=== PATIENT | female | born 1975 | race Two or more races ===

== ENCOUNTER 2017-09-12 20:01 | Inpatient (IN) | payer BC ==
[2017-09-13] MEDS ORDERED: Sodium Chloride 0.9% 1,000 ML IV ONE ×2 (00:02→03:27)
--- NOTE | 2017-09-13 00:02 | C.PDOC ---
History Of Present Illness Patient is a 41 y/o female who presents to the ED with a complaint of abdominal pain for the last few days. Patient denies any fever or chills. Admits to seeing PMD and taking Naproxin without relief. Patient rates abdominal pain 4/ 10. No other physical complaints at this time. Time Seen by Provider: 09/13/17 00:01 Chief Complaint (Nursing): Abdominal Pain History Per: Patient History/Exam Limitations: no limitations Onset/Duration Of Symptoms: Days (few days) Current Symptoms Are (Timing): Still Present Severity: Moderate Pain Scale Rating Of: 4 Location Of Pain/Discomfort: Epigastric Radiation Of Pain To:: None Quality Of Discomfort: Dull, Cramping, Burning Associated Symptoms: Nausea. denies: Fever, Chills Exacerbating Factors: None Alleviating Factors: None Last Bowel Movement: Today Recent travel outside of the [place]: No Additional History Per: Patient Abnormal Vaginal Bleeding: No Past Medical History Reviewed: Historical Data, Nursing Documentation, Vital Signs Vital Signs: Last Vital Signs Temp 98.4 F 09/12/17 21:05 Pulse 72 09/12/17 21:05 Resp 18 09/12/17 21:05 BP 123/77 09/12/17 21:05 Pulse Ox 99 09/13/17 01:25 - Medical History PMH: Asthma (USES INHALER) Other Surgeries: 06/2001 - [facility] Procedures CERVICAL LES DESTRUC NEC (09/21/01) LOW CERVICAL (06/30/01) Family History: States: No Known Family Hx - Social History Hx Tobacco Use: No Hx Alcohol Use: No Hx Substance Use: No - Immunization History Hx Tetanus Toxoid Vaccination: No Hx Influenza Vaccination: Yes (UTD) Hx Pneumococcal Vaccination: No Review Of Systems Constitutional: Negative for: Fever, Chills Cardiovascular: Negative for: Chest Pain Respiratory: Negative for: Shortness of Breath Gastrointestinal: Positive for: Abdominal Pain (epigastric) Genitourinary: Negative for: Dysuria Musculoskeletal: Negative for: Back Pain Skin: Negative for: Rash Neurological: Negative for: Weakness Psych: Negative for: Anxiety Physical Exam - Physical Exam Appears: Non-toxic, No Acute Distress Skin: Warm, Dry Head: Normacephalic Eye(s): bilateral: Normal Inspection Oral Mucosa: Moist Neck: Supple Chest: Symmetrical Cardiovascular: Rhythm Regular, No Murmur Respiratory: Normal Breath Sounds, No Rales, No Rhonchi, No Wheezing Gastrointestinal/Abdominal: Soft, No Tenderness, No Guarding, No Rebound Back: No CVA Tenderness Extremity: Normal ROM Extremity: Bilateral: Atraumatic Pulses: Left Dorsalis Pedis: Normal, Right Dorsalis Pedis: Normal Neurological/Psych: Oriented x3, Normal Speech, Normal Cognition Gait: Steady ED Course And Treatment - Laboratory Results Result Diagrams: 09/13/17 00:26 09/13/17 00:26 O2 Sat by Pulse Oximetry: 99 Progress Note: CT A/P ordered. Zofran, pepcid, and IV fluids administered. Disposition Discussed With Dr.: Antony Chávez Comment: accepted the pt on his service and took over the care at 3:27 AM Doctor Will See Patient In The: Hospital Counseled Patient/Family Regarding: Studies Performed, Diagnosis - Disposition Disposition: HOSPITALIZED Disposition Time: 00:02 Condition: FAIR Forms: [employer] [facility] (Rwandan) - POA Present On Arrival: None - Clinical Impression Clinical Impression: Abdominal pain, Duodenitis, Duodenal bulb ulcer - Scribe Statement The provider has reviewed the documentation as recorded by the Scribe Debra Downs All medical record entries made by the Scribe were at my direction and personally dictated by me. I have reviewed the chart and agree that the record accurately reflects my personal performance of the history, physical exam, medical decision making, and the department course for this patient. I have also personally directed, reviewed, and agree with the discharge instructions and disposition. Decision To Admit - Pt Status Changed To: Hospital Disposition Of: Inpatient - Admit Certification Admit to Inpatient:: After my assessment, the patient will require hospitalization for at least two midnights. This is because of the severity of symptoms shown, intensity of services needed, and/or the medical risk in this patient being treated as an outpatient. - InPatient: Physician Admission Certification:: After my assessment, the patient will require hospitalization for at least two midnights. This is because of the severity of symptoms shown, intensity of services needed, and/or the medical risk in this patient being treated as an outpatient. - . Bed Request Type: Regular Admitting Physician: Antony Chávez Patient Diagnosis: Abdominal pain, Duodenitis, Duodenal bulb ulcer
[2017-09-13 00:27] LABS: SQUAMOUS EPITHIAL 2 /hpf (0-5); URINE BACTERIA OCC (<OCC); URINE BILIRUBIN NEGATIVE (NEGATIVE); URINE BLOOD 1+ (NEGATIVE); URINE CLARITY Clear (Clear); URINE COLOR Colorless (YELLOW); URINE GLUCOSE (UA) NORMAL (Normal); URINE LEUKOCYTE ESTERASE NEG Leu/uL (Negative); URINE NITRATE NEGATIVE (NEGATIVE); URINE PROTEIN NEGATIVE (NEGATIVE); URINE UROBILINOGEN NORMAL mg/dL (0.2-1.0)
[2017-09-13 00:29] LABS: BASO # 0.1 K/uL (0.0-0.2); BASO % 0.9 % (0.0-2.0); EOS # 0.1 K/uL (0.0-0.7); HEMOGLOBIN 12.1 g/dL (11.0-16.0); LYMPH # 2.3 K/uL (1.0-4.3); LYMPH % 30.1 % (20.0-40.0); MEAN CELL VOLUME 83.6 fL (81.0-99.0); MEAN CORPUSCULAR HEMOGLOBIN 28.7 pg (27.0-31.0); MEAN CORPUSCULAR HGB CONC 34.3 g/dL (33.0-37.0); MONO # 0.5 K/uL (0.0-0.8); NEUT # 4.5 K/uL (1.8-7.0); RBC 4.23 Mil/uL (3.80-5.20); RED CELL DISTRIBUTION WIDTH 13.9 % (11.5-14.5); WHITE BLOOD COUNT 7.6 K/uL (4.8-10.8)
[2017-09-13 00:35] LABS: HCG,QUALITATIVE URINE NEGATIVE (NEGATIVE)
[2017-09-13] MEDS ORDERED: Iodixanol 320 MG/ML 100 ML BOTTLE IV ONE (00:35)
[2017-09-13 00:41] LABS: PROTHROMBIN TIME 11.1 SECONDS (9.7-12.2)
[2017-09-13 00:45] LABS: ALB/GLOB RATIO 1.2 (1.0-2.1); ALBUMIN 3.8 g/dL (3.5-5.0); ALT/SGPT 22 U/L (9-52); AST/SGOT 22 U/L (14-36); BLOOD UREA NITROGEN 13 mg/dL (7-17); CALCIUM 8.9 mg/dl (8.6-10.4); GFR AFRICAN-AMERICAN > 60; GFR NON-AFRICAN AMERICAN > 60; LIPASE 77 U/L (23-300)
--- NOTE | 2017-09-13 03:30 | CT ---
EXAM: CT Abdomen and Pelvis With Intravenous Contrast CLINICAL HISTORY: 41 years old, female; Pain; Abdominal pain; Additional info: Mid epigastic pain TECHNIQUE: Axial computed tomography images of the abdomen and pelvis with intravenous contrast. All CT scans at this facility use one or more dose reduction techniques, viz.: automated exposure control; ma/kV adjustment per patient size (including targeted exams where dose is matched to indication; i.e. head); or iterative reconstruction technique. Coronal and sagittal reformatted images were created and reviewed. CONTRAST: 100 mL of [id number] administered intravenously. COMPARISON: No relevant prior studies available. FINDINGS: Lower thorax: No acute findings. ABDOMEN: Liver: Mild periportal edema, nonspecific. Gallbladder and bile ducts: No calcified stones. No ductal dilation. Pancreas: No ductal dilation. No mass. Spleen: No splenomegaly. Adrenals: No mass. Kidneys and ureters: No mass. No hydronephrosis. Stomach and bowel: No definite mural thickening. No obstruction. Appendix: No findings to suggest acute appendicitis. PELVIS: Bladder: Unremarkable. Reproductive: 1.9 x 1.5 x 1.6 cm peripherally enhancing hypodensity with crenulated margins within RIGHT ovary. ABDOMEN and PELVIS: Intraperitoneal space: Small free fluid within pelvis. No free air. Bones/joints: No acute fracture. Soft tissues: Unremarkable. Vasculature: Unremarkable. No aneurysm. Lymph nodes: No pathologically enlarged lymph nodes. IMPRESSION: 1. Involuting or ruptured RIGHT ovarian follicle/cyst. 2. Incidental/non-acute findings are described above.
[2017-09-13] MEDS ORDERED: Sodium Chloride 0.9% 1,000 ML ONE (04:51)
--- NOTE | 2017-09-13 15:01 | US ---
HISTORY: vaginal bleeding COMPARISON: None available. TECHNIQUE: Real-time transabdominal pelvic ultrasound was performed. In addition a transvaginal pelvic ultrasound was necessary to better depict pelvic anatomy. FINDINGS: UTERUS: Measures 10.6 x 5.1 x 6.5 cm. Anteverted. ENDOMETRIUM: Measures 6 mm in diameter. CERVIX: Nabothian cyst. RIGHT OVARY: Measures 3.7 x 1.9 x 3.2 cm. Blood flow is demonstrated. 1.5 x 1.2 x 1.1 cm cyst with septation. LEFT OVARY: Measures 2.6 x 1.7 x 2.3 cm. Blood flow is demonstrated. FREE FLUID: Small pelvic free fluid. OTHER FINDINGS: None. IMPRESSION: 1.5 cm right ovarian cyst with septation. Six week ultrasound follow-up may be considered if indicated. Small pelvic free fluid.
--- NOTE | 2017-09-13 16:21 | CP.PCM.CON ---
<Fern Alvarado - Last Filed: 09/13/17 16:17> History of Present Illness - History of Present Illness History of Present Illness: GI Fellow PGY4 Consult Note This is a 41yF with no significant pmhx presenting with complaints of periumbilical and pelvic pain radiating to right side. Pt reports she started having this pain 4 days ago. She reports a hx of ovarian cyst diagnosed 03/30at [facility] and followed up with her [facility] as outpt. Pt reports irregular menses this month and was placed on OCP by [facility]ke [facility]. Pt denies and GI complaints, regular BM daily, no nausea, vomiting or GERD No prior hx of EGD or Colonoscopy. ROS: A 12pt ROS was negative except as above PmHx: As stated above PsHx: Denies SHx: denies tobacco, etoh or drugs Fhx: denies colon cancer Past Patient History - Past Social History Smoking Status: Never Smoked - PULMONARY Hx Asthma: Yes (USES INHALER) - PSYCHIATRIC Hx Substance Use: No - SURGICAL HISTORY Hx Surgeries: No - ANESTHESIA Hx Anesthesia: No Meds Allergies/Adverse Reactions: Allergies Allergy/AdvReac Type Severity Reaction Status Date / Time No Known Allergies Allergy Verified 09/12/17 21:10 - Medications Medications: Current Medications Oxycodone/Acetaminophen (Percocet 5/325 Mg Tab) 1 tab PO Q6H PRN PRN Reason: Pain, severe (8-10) Stop: 09/16/17 13:58 Physical Exam - Constitutional Appears: Non-toxic, In Acute Distress - Head Exam Head Exam: ATRAUMATIC, NORMAL INSPECTION, NORMOCEPHALIC - Eye Exam Eye Exam: EOMI, Normal appearance Pupil Exam: NORMAL ACCOMODATION, PERRL - ENT Exam ENT Exam: Mucous Membranes Moist - Respiratory Exam Respiratory Exam: Clear to Auscultation Bilateral, NORMAL BREATHING PATTERN - Cardiovascular Exam Cardiovascular Exam: REGULAR RHYTHM, RRR - GI/Abdominal Exam GI & Abdominal Exam: Normal Bowel Sounds, Soft, Tenderness. absent: Distended - Extremities Exam Extremities exam: Positive for: full ROM, normal inspection - Neurological Exam Neurological exam: Alert, Oriented x3 - Psychiatric Exam Psychiatric exam: Normal Affect, Normal Mood - Skin Skin Exam: Intact, Normal Color, Warm Results - Vital Signs Recent Vital Signs: Last Vital Signs Temp 98.4 F 09/13/17 15:59 Pulse 89 09/13/17 15:59 Resp 20 09/13/17 15:59 BP 96/64 L 09/13/17 15:59 Pulse Ox 96 09/13/17 15:59 - Labs Result Diagrams: 09/13/17 00:26 09/13/17 00:26 Labs: Laboratory Results - last 24 hr 09/13/17 09/13/17 09/13/17 00:21 00:26 00:26 WBC 7.6 RBC 4.23 Hgb 12.1 Hct 35.4 MCV 83.6 MCH 28.7 MCHC 34.3 RDW 13.9 Plt Count 211 MPV 8.0 Neut % (Auto) 60.0 Lymph % (Auto) 30.1 [place] % (Auto) 7.0 Eos % (Auto) 2.0 Baso % (Auto) 0.9 Neut # (Auto) 4.5 Lymph # (Auto) 2.3 [place] # (Auto) 0.5 Eos # (Auto) 0.1 Baso # (Auto) 0.1 PT 11.1 INR 1.0 APTT 27 Sodium Potassium Chloride Carbon Dioxide Anion Gap BUN Creatinine Est GFR ( Amer) Est GFR (Non-Af Amer) Random Glucose Calcium Total Bilirubin AST ALT Alkaline Phosphatase Total Protein Albumin Globulin Albumin/Globulin Ratio Lipase Urine Color Colorless Urine Clarity Clear Urine pH 6.0 Ur Specific [place] 1.005 Urine Protein Negative Urine Glucose (UA) Normal Urine Ketones Negative Urine Blood 1+ H Urine Nitrate Negative Urine Bilirubin Negative Urine Urobilinogen Normal Ur Leukocyte Esterase Neg Urine WBC (Auto) < 1 Ur Squamous Epith Cells 2 Urine Bacteria Occ H Urine HCG, Qual Negative 09/13/17 00:26 WBC RBC Hgb Hct MCV MCH MCHC RDW Plt Count MPV Neut % (Auto) Lymph % (Auto) [place] % (Auto) Eos % (Auto) Baso % (Auto) Neut # (Auto) Lymph # (Auto) [place] # (Auto) Eos # (Auto) Baso # (Auto) PT INR APTT Sodium 136 Potassium 4.7 Chloride 103 Carbon Dioxide 26 Anion Gap 12 BUN 13 Creatinine 0.5 L Est GFR ( Amer) > 60 Est GFR (Non-Af Amer) > 60 Random Glucose 94 Calcium 8.9 Total Bilirubin 0.6 AST 22 ALT 22 Alkaline Phosphatase 38 Total Protein 7.0 Albumin 3.8 Globulin 3.2 Albumin/Globulin Ratio 1.2 Lipase 77 Urine Color Urine Clarity Urine pH Ur Specific [place] Urine Protein Urine Glucose (UA) Urine Ketones Urine Blood Urine Nitrate Urine Bilirubin Urine Urobilinogen Ur Leukocyte Esterase Urine WBC (Auto) Ur Squamous Epith Cells Urine Bacteria Urine HCG, Qual Assessment & Plan - Assessment and Plan (Free Text) Assessment: This is a 41yF presenting with complaints of pelvic pain radiating to right. 1. Ruptured Right ovarian cyst Plan: -Continue supportive care with pain control and antiemetics -CT imaging reviewed no GI pathology, ruptured ovarian cyst which correlates with exam finding and hx -Recommend FILM RECORDIST for further evaluation -No GI issue at this time, please call with any questions or concers, will sign off <Natalee Alfaro MD - Last Filed: 09/13/17 17:57> Meds - Medications Medications: Current Medications Oxycodone/Acetaminophen (Percocet 5/325 Mg Tab) 1 tab PO Q6H PRN PRN Reason: Pain, severe (8-10) Stop: 09/16/17 13:58 Results - Vital Signs Recent Vital Signs: Last Vital Signs Temp 98.4 F 09/13/17 15:59 Pulse 89 09/13/17 15:59 Resp 20 09/13/17 15:59 BP 96/64 L 09/13/17 15:59 Pulse Ox 96 09/13/17 15:59 - Labs Result Diagrams: 09/13/17 00:26 09/13/17 00:26 Labs: Laboratory Results - last 24 hr 09/13/17 09/13/17 09/13/17 00:21 00:26 00:26 WBC 7.6 RBC 4.23 Hgb 12.1 Hct 35.4 MCV 83.6 MCH 28.7 MCHC 34.3 RDW 13.9 Plt Count 211 MPV 8.0 Neut % (Auto) 60.0 Lymph % (Auto) 30.1 [place] % (Auto) 7.0 Eos % (Auto) 2.0 Baso % (Auto) 0.9 Neut # (Auto) 4.5 Lymph # (Auto) 2.3 [place] # (Auto) 0.5 Eos # (Auto) 0.1 Baso # (Auto) 0.1 PT 11.1 INR 1.0 APTT 27 Sodium Potassium Chloride Carbon Dioxide Anion Gap BUN Creatinine Est GFR ( Amer) Est GFR (Non-Af Amer) Random Glucose Calcium Total Bilirubin AST ALT Alkaline Phosphatase Total Protein Albumin Globulin Albumin/Globulin Ratio Lipase Urine Color Colorless Urine Clarity Clear Urine pH 6.0 Ur Specific [place] 1.005 Urine Protein Negative Urine Glucose (UA) Normal Urine Ketones Negative Urine Blood 1+ H Urine Nitrate Negative Urine Bilirubin Negative Urine Urobilinogen Normal Ur Leukocyte Esterase Neg Urine WBC (Auto) < 1 Ur Squamous Epith Cells 2 Urine Bacteria Occ H Urine HCG, Qual Negative 09/13/17 00:26 WBC RBC Hgb Hct MCV MCH MCHC RDW Plt Count MPV Neut % (Auto) Lymph % (Auto) [place] % (Auto) Eos % (Auto) Baso % (Auto) Neut # (Auto) Lymph # (Auto) [place] # (Auto) Eos # (Auto) Baso # (Auto) PT INR APTT Sodium 136 Potassium 4.7 Chloride 103 Carbon Dioxide 26 Anion Gap 12 BUN 13 Creatinine 0.5 L Est GFR ( Amer) > 60 Est GFR (Non-Af Amer) > 60 Random Glucose 94 Calcium 8.9 Total Bilirubin 0.6 AST 22 ALT 22 Alkaline Phosphatase 38 Total Protein 7.0 Albumin 3.8 Globulin 3.2 Albumin/Globulin Ratio 1.2 Lipase 77 Urine Color Urine Clarity Urine pH Ur Specific [place] Urine Protein Urine Glucose (UA) Urine Ketones Urine Blood Urine Nitrate Urine Bilirubin Urine Urobilinogen Ur Leukocyte Esterase Urine WBC (Auto) Ur Squamous Epith Cells Urine Bacteria Urine HCG, Qual Attending/Attestation - Attestation I have personally seen and examined this patient.: Yes I have fully participated in the care of the patient.: Yes I have reviewed all pertinent clinical information: Yes Notes (Text): 09/13/17 17:55 Patient seen in ER. This is a 41 year old F presenting with complaints of pelvic pain radiating to right. She has had similar findings for past two weeks and saw obgyn who started her on OCP. Denies nausea, vomiting, change in bowel habits or rectal bleeding. CT shows no GI pathology, ruptured ovarian cyst which correlates with exam finding and hx. Recommend FILM RECORDIST for further evaluation -No GI issue at this time, please call with any questions or concers, will sign off
--- NOTE | 2017-09-13 17:40 | CP.PCM.HP ---
Past Patient History - Past Social History Smoking Status: Never Smoked - PULMONARY Hx Asthma: Yes (USES INHALER) - PSYCHIATRIC Hx Substance Use: No - SURGICAL HISTORY Hx Surgeries: No - ANESTHESIA Hx Anesthesia: No Meds Allergies/Adverse Reactions: Allergies Allergy/AdvReac Type Severity Reaction Status Date / Time No Known Allergies Allergy Verified 09/12/17 21:10 Results - Vital Signs Recent Vital Signs: Last Vital Signs Temp 98.4 F 09/13/17 15:59 Pulse 89 09/13/17 15:59 Resp 20 09/13/17 15:59 BP 96/64 L 09/13/17 15:59 Pulse Ox 96 09/13/17 15:59 - Labs Result Diagrams: 09/13/17 00:26 09/13/17 00:26 Labs: Laboratory Results - last 24 hr 09/13/17 09/13/17 09/13/17 00:21 00:26 00:26 WBC 7.6 RBC 4.23 Hgb 12.1 Hct 35.4 MCV 83.6 MCH 28.7 MCHC 34.3 RDW 13.9 Plt Count 211 MPV 8.0 Neut % (Auto) 60.0 Lymph % (Auto) 30.1 Kay % (Auto) 7.0 Eos % (Auto) 2.0 Baso % (Auto) 0.9 Neut # (Auto) 4.5 Lymph # (Auto) 2.3 Kay # (Auto) 0.5 Eos # (Auto) 0.1 Baso # (Auto) 0.1 PT 11.1 INR 1.0 APTT 27 Sodium Potassium Chloride Carbon Dioxide Anion Gap BUN Creatinine Est GFR ( Amer) Est GFR (Non-Af Amer) Random Glucose Calcium Total Bilirubin AST ALT Alkaline Phosphatase Total Protein Albumin Globulin Albumin/Globulin Ratio Lipase Urine Color Colorless Urine Clarity Clear Urine pH 6.0 Ur Specific [place] 1.005 Urine Protein Negative Urine Glucose (UA) Normal Urine Ketones Negative Urine Blood 1+ H Urine Nitrate Negative Urine Bilirubin Negative Urine Urobilinogen Normal Ur Leukocyte Esterase Neg Urine WBC (Auto) < 1 Ur Squamous Epith Cells 2 Urine Bacteria Occ H Urine HCG, Qual Negative 09/13/17 00:26 WBC RBC Hgb Hct MCV MCH MCHC RDW Plt Count MPV Neut % (Auto) Lymph % (Auto) Kay % (Auto) Eos % (Auto) Baso % (Auto) Neut # (Auto) Lymph # (Auto) Kay # (Auto) Eos # (Auto) Baso # (Auto) PT INR APTT Sodium 136 Potassium 4.7 Chloride 103 Carbon Dioxide 26 Anion Gap 12 BUN 13 Creatinine 0.5 L Est GFR ( Amer) > 60 Est GFR (Non-Af Amer) > 60 Random Glucose 94 Calcium 8.9 Total Bilirubin 0.6 AST 22 ALT 22 Alkaline Phosphatase 38 Total Protein 7.0 Albumin 3.8 Globulin 3.2 Albumin/Globulin Ratio 1.2 Lipase 77 Urine Color Urine Clarity Urine pH Ur Specific [place] Urine Protein Urine Glucose (UA) Urine Ketones Urine Blood Urine Nitrate Urine Bilirubin Urine Urobilinogen Ur Leukocyte Esterase Urine WBC (Auto) Ur Squamous Epith Cells Urine Bacteria Urine HCG, Qual
[2017-09-14] MEDS: Oxycodone/Acetaminophen 5/325 mg Tab PO PRN ×2 (03:05→14:31)
--- NOTE | 2017-09-14 14:13 | CP.PCM.CON ---
History of Present Illness - History of Present Illness History of Present Illness: COMPLIANCE ADMINISTRATOR Consult Note - Dr. Baker Patient is a 41 year old with past medical history of asthma presents to [facility] for periumbilical/lower abdominal pain. When asked, patient states that she has been having lower abdominal pain intermittently for the past 3 months. Patient states that her last menstrual period was 08/29/17. Reports that her cycle was normal, and a few days after it concluded she started experiencing sharp periumbilical pain that is accompanied by nausea. Pain was intermittent, denies any inciting events. After the onset of abdominal pain, she started noticing occasional vaginal spotting. Patient states that she saw Dr Choi outpatient for the pelvic pain and irregular vaginal bleeding last Friday. At that time he prescribed her OCPs (Cryselle) and Naproxen. Patient states that she took both Naproxen and OCPs with no relief in symptoms. Denies any aggravating factors. Last episode of spotting was yesterday afternoon. At this current time, patient states that her pain is controlled. Pain scale is currently 3-4/10. She is tolerating diet. Denies vomiting, headaches, dizziness, cp, palpitations, sob, fevers/chills, diarrhea/ constipation, urinary symptoms. OB Hx: 1. 1997 SAB with D+C 2. 1999 SAB with D+C 3. 2000 PLTCD at term, no complications COMPLIANCE ADMINISTRATOR Hx: LMP - 08/29/17 [place] - 13/regular/5 days Reports having a history of Ovarian Cysts Denies Hx of fibroids, STIs, abnormal pap smears Allergies: NKDA Medications: Albuterol Medical History: Asthma Surgical History: C/S x 1, D+C x 2, Removal of R ovarian cyst 9 years ago? Social History: Smokes 3 cig/weekend, Denies alcohol, drug use Family History: Denies history of ovarian, endometrial, breast cancer; Mother - HTN, Father - from [place] Past Patient History - Past Medical History & Family History Past Medical History?: Yes - Past Social History Smoking Status: Never Smoked - CARDIAC Hx Cardiac Disorders: No - PULMONARY Hx Respiratory Disorders: Yes Hx Asthma: Yes (USES INHALER) - NEUROLOGICAL Hx Neurological Disorder: No - HEENT Hx HEENT Problems: No - RENAL Hx Chronic Kidney Disease: No - ENDOCRINE/METABOLIC Hx Endocrine Disorders: No - HEMATOLOGICAL/ONCOLOGICAL Hx Blood Disorders: No - INTEGUMENTARY Hx Dermatological Problems: No - MUSCULOSKELETAL/RHEUMATOLOGICAL Hx Musculoskeletal Disorders: No Hx Falls: No - GASTROINTESTINAL Hx Gastrointestinal Disorders: No - GENITOURINARY/GYNECOLOGICAL Hx Genitourinary Disorders: Yes Other/Comment: Ovarian cyst - PSYCHIATRIC Hx Substance Use: No - SURGICAL HISTORY Hx Surgeries: Yes Hx Section: Yes - ANESTHESIA Hx Anesthesia: Yes Hx Anesthesia Reactions: No Meds Allergies/Adverse Reactions: Allergies Allergy/AdvReac Type Severity Reaction Status Date / Time No Known Allergies Allergy Verified 09/12/17 21:10 - Medications Medications: Current Medications Oxycodone/Acetaminophen (Percocet 5/325 Mg Tab) 1 tab PO Q6H PRN PRN Reason: Pain, severe (8-10) Stop: 09/16/17 13:58 Last Admin: 09/14/17 03:05 Dose: 1 tab Physical Exam - Constitutional Appears: Well, No Acute Distress - Head Exam Head Exam: ATRAUMATIC, NORMAL INSPECTION - Eye Exam Eye Exam: EOMI, Normal appearance - ENT Exam ENT Exam: Mucous Membranes Moist - Respiratory Exam Respiratory Exam: NORMAL BREATHING PATTERN - Cardiovascular Exam Cardiovascular Exam: REGULAR RHYTHM - GI/Abdominal Exam GI & Abdominal Exam: Normal Bowel Sounds, Soft. absent: Distended, Firm, Guarding, Rebound, Rigid, Tenderness - Extremities Exam Extremities exam: Positive for: normal inspection - Neurological Exam Neurological exam: Alert, Normal Gait, Oriented x3 - Psychiatric Exam Psychiatric exam: Normal Affect, Normal Mood - Skin Skin Exam: Dry, Normal Color, Warm Results - Vital Signs Recent Vital Signs: Last Vital Signs Temp 98.2 F 09/13/17 22:23 Pulse 83 09/13/17 22:23 Resp 18 09/13/17 22:23 BP 96/62 L 09/13/17 22:23 Pulse Ox 100 09/13/17 22:23 - Labs Result Diagrams: 09/13/17 00:26 09/13/17 00:26 Assessment & Plan - Assessment and Plan (Free Text) Assessment: 41 year old presents with intermittent lower abdominal pain/pelvic pain. CT abd/pelvis showed 1.9 x 1.5 x 1.6cm peripherally enhancing hypodensity with crenulated margins within right ovary. Small free fluid within pelvis. TVUS showed 1.5cm right ovarian cyst with septation. Plan: -Stable, afebrile -Labs and imaging reviewed -Possible ruptured ovarian cyst however less likely as patient's lower abdominal pain is chronic in nature -We will recommend further evaluation from GI and possibly Urology -Continue pain control as needed -No surgical intervention at this time -Patient to follow up with COMPLIANCE ADMINISTRATOR outpatient -Plan discussed with Dr Samuel Cheatham DO PGY-1
[2017-09-15 01:21] VITALS: RESP 20
[2017-09-15 02:46] VITALS: O2SAT 99
[2017-09-15 07:57] VITALS: BP 91/54; PULSE 68; TEMP 97
[2017-09-15] MEDS: Oxycodone/Acetaminophen 5/325 mg Tab PO PRN (08:24)
--- NOTE | 2017-09-15 13:52 | CP.PCM.DIS ---
Provider - Provider Date of Admission: 09/13/17 03:23 Attending physician: Antony Moore MD Time Spent in preparation of Discharge (in minutes): 25 Diagnosis - Discharge Diagnosis (1) Ruptured ovarian cyst Status: Acute Hospital Course - Lab Results Lab Results: Most Recent Lab Values WBC 7.6 K/uL (4.8-10.8) 09/13/17 00:26 RBC 4.23 Mil/uL (3.80-5.20) 09/13/17 00:26 Hgb 12.1 g/dL (11.0-16.0) 09/13/17 00:26 Hct 35.4 % (34.0-47.0) 09/13/17 00:26 MCV 83.6 fL (81.0-99.0) 09/13/17 00:26 MCH 28.7 pg (27.0-31.0) 09/13/17 00:26 MCHC 34.3 g/dL (33.0-37.0) 09/13/17 00:26 RDW 13.9 % (11.5-14.5) 09/13/17 00:26 Plt Count 211 K/uL (130-400) 09/13/17 00:26 MPV 8.0 fL (7.2-11.7) 09/13/17 00:26 Neut % (Auto) 60.0 % (50.0-75.0) 09/13/17 00:26 Lymph % (Auto) 30.1 % (20.0-40.0) 09/13/17 00:26 Cla[place]orne % (Auto) 7.0 % (0.0-10.0) 09/13/17 00:26 Eos % (Auto) 2.0 % (0.0-4.0) 09/13/17 00:26 Baso % (Auto) 0.9 % (0.0-2.0) 09/13/17 00:26 Neut # (Auto) 4.5 K/uL (1.8-7.0) 09/13/17 00:26 Lymph # (Auto) 2.3 K/uL (1.0-4.3) 09/13/17 00:26 Cla[place]orne # (Auto) 0.5 K/uL (0.0-0.8) 09/13/17 00:26 Eos # (Auto) 0.1 K/uL (0.0-0.7) 09/13/17 00:26 Baso # (Auto) 0.1 K/uL (0.0-0.2) 09/13/17 00:26 PT 11.1 SECONDS (9.7-12.2) 09/13/17 00:26 INR 1.0 09/13/17 00: APTT 27 SECONDS (21-34) 09/13/17 00:26 Sodium 136 mmol/L (132-148) 09/13/17 00:26 Potassium 4.7 mmol/L (3.6-5.2) 09/13/17 00:26 Chloride 103 mmol/L (98-107) 09/13/17 00:26 Carbon Dioxide 26 mmol/L (22-30) 09/13/17 00: Anion Gap 12 (10-20) 09/13/17 00:26 BUN 13 mg/dL (7-17) 09/13/17 00:26 Creatinine 0.5 mg/dL (0.7-1.2) L 09/13/17 00:26 Est GFR ( Amer) > 60 09/13/17 00:26 Est GFR (Non-Af Amer) > 60 09/13/17 00:26 Random Glucose 94 mg/dL (65-105) 09/13/17 00:26 Calcium 8.9 mg/dl (8.6-10.4) 09/13/17 00:26 Total Bilirubin 0.6 mg/dL (0.2-1.3) 09/13/17 00:26 AST 22 U/L (14-36) 09/13/17 00:26 ALT 22 U/L (9-52) 09/13/17 00:26 Alkaline Phosphatase 38 U/L (38-126) 09/13/17 00:26 Total Protein 7.0 g/dL (6.3-8.3) 09/13/17 00:26 Albumin 3.8 g/dL (3.5-5.0) 09/13/17 00:26 Globulin 3.2 gm/dL (2.2-3.9) 09/13/17 00:26 Albumin/Globulin Ratio 1.2 (1.0-2.1) 09/13/17 00:26 Lipase 77 U/L (23-300) 09/13/17 00: Urine Color Colorless (YELLOW) 09/13/17: Urine Clarity Clear (Clear) 09/13/17: Urine pH 6.0 (5.0-8.0) 09/13/17 00:21 Ur Specific Ransom 1.005 (1.003-1.030) 09/13/17 00: Urine Protein Negative mg/dL (NEGATIVE) 09/13/17 Urine Glucose (UA) Normal mg/dL (Normal) 09/13/17: Urine Ketones Negative mg/dL (NEGATIVE) 09/13/17: Urine Blood 1+ (NEGATIVE) H 09/13/17: Urine Nitrate Negative (NEGATIVE) 09/13/17: Urine Bilirubin Negative (NEGATIVE) 09/13/17: Urine Urobilinogen Normal mg/dL (0.2-1.0) 09/13/17: Ur Leukocyte Esterase Neg Duran/uL (Negative) 09/13/17: Urine WBC (Auto) < 1 /hpf (0-5) 09/13/17: Ur Squamous Epith Cells 2 /hpf (0-5) 09/13/17 00: Urine Bacteria Occ (<OCC) H 09/13/17: Urine HCG, Qual Negative (NEGATIVE) 09/13/17 00:21 - Hospital Course Hospital Course: Pt was admitted for Abdominal pain and was seen and evaluated by GI and 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 CT abd and sono showed ruptured ovarian cyst. Patients symptoms improved and is being discharged home in stable condition to be followed up with PMD and Roll Handler as out patient. Discharge Exam - Head Exam Head Exam: ATRAUMATIC, NORMAL INSPECTION - Eye Exam Eye Exam: Normal appearance - ENT Exam ENT Exam: Mucous Membranes Moist - Respiratory Exam Respiratory Exam: Clear to PA & Lateral, NORMAL BREATHING PATTERN - Cardiovascular Exam Cardiovascular Exam: REGULAR RHYTHM, +S1, +S2 - GI/Abdominal Exam GI & Abdominal Exam: Normal Bowel Sounds, Soft - Extremities Exam Extremities exam: normal inspection - Neurological Exam Neurological exam: Alert, Oriented x3 Discharge Plan - Follow Up Plan Condition: FAIR Disposition: HOME/ ROUTINE Instructions: Acute Abdominal Pain (DC), Acute Abdominal Pain (GEN) Additional Instructions: PLEASE FOLLOW UP WITH DR MOORE IN THE OFFICE-- CALL FOR AN APPOINTMENT FOLLOW UP WITH DR BAKER IN THE OFFICE IN 1 WEEK-- CALL FOR AN APPOINTMENT CONTINUE HOME MEDICATIONS PER MED REC FOR ANY FURTHER QUESTIONS PLEASE CALL DR. MOORE'S OFFICE Referrals: Antony Moore MD [Staff Provider] - Yayo Baker MD [Staff Provider] -
--- NOTE | 2017-09-15 13:59 | CP.PCM.PN ---
Subjective - Date & Time of Evaluation Date of Evaluation: 09/14/17 Time of Evaluation: 15:10 Objective - Vital Signs/Intake and Output Vital Signs (last 24 hours): Temp Pulse Resp BP Pulse Ox 97.0 F L 68 20 91/54 L 99 09/15/17 07:25 09/15/17 07:25 09/15/17 07:25 09/15/17 07:25 09/15/17 07:25 - Medications Medications: Current Medications Oxycodone/Acetaminophen (Percocet 5/325 Mg Tab) 1 tab PO Q6H PRN PRN Reason: Pain, severe (8-10) Stop: 09/16/17 13:58 Last Admin: 09/15/17 08:24 Dose: 1 tab - Labs Labs: 09/13/17 00:26 09/13/17 00:26 PT 11.1 SECONDS (9.7-12.2) 09/13/17 00:26 INR 1.0 09/13/17 00:26 APTT 27 SECONDS (21-34) 09/13/17 00:26 Assessment and Plan (1) Ruptured ovarian cyst Status: Acute
== END 2017-09-15 15:32 | disposition home or self-care (01) | DRG 761 ==
LOC: C.ER 20:01 → C.9E 09-13 03:23 → C.6T 09-13 22:23
PROVIDERS: ADMIT Internal Medicine Critical Care Medicine; ATTEND Internal Medicine Critical Care Medicine
DX: N83.201 Unspecified ovarian cyst, right side (principal); N92.6 Irregular menstruation, unspecified; K26.9 Duodenal ulcer, unspecified as acute or chronic, without hemorrhage or perforation; K29.80 Duodenitis without bleeding; J45.909 Unspecified asthma, uncomplicated